=== PATIENT | female | born 1955 ===

== ENCOUNTER 2017-03-26 11:22 | Inpatient (IN) | payer OTHER ==
[~2017-03-26] VITALS: Ht 160 cm; Wt 75.7 kg
[2017-04-29] MEDS ORDERED: ASA81 MG PO (15:11)
[2017-04-29] MEDS ORDERED: LIPITOR20 MG PO (15:11)
[2017-04-29] MEDS ORDERED: LOSARTAN POTAS100 MG PO (15:11)
[2017-04-29] MEDS ORDERED: MOBIC15 MG PO (15:12)
[2017-04-29] MEDS ORDERED: RESTORIL30 M1 PO (15:12)
[2017-04-29] MEDS ORDERED: XANAX1 MG PO (15:12)
[2017-04-29] MEDS ORDERED: BACLOFEN10 MG PO (15:13)
[2017-04-29] MEDS ORDERED: PRILOSEC OTC20 MG PO (15:13)
[2017-04-29] MEDS ORDERED: ATENOLOL25 MG PO (15:13)
== END 2017-05-09 09:55 | disposition home or self-care (01) | DRG 331 ==
LOC: SURH 05-06 06:50 → O/R 05-06 06:50 → SURG 05-06 07:00 → SURH 05-06 15:05
PROVIDERS: Surgery
PROC: 0DTF4ZZ Resection of Right Large Intestine, Percutaneous Endoscopic Approach (ICD-10-PCS; principal; 2017-05-06 07:00)
DX: D37.4 Neoplasm of uncertain behavior of colon (principal); I11.9 Hypertensive heart disease without heart failure; E78.00 Pure hypercholesterolemia, unspecified; E66.8 Other obesity; R73.01 Impaired fasting glucose

== ENCOUNTER → 2017-05-16 | Emergency (ER) | payer OTHER ==
[~2017-05-16] VITALS: Ht 160 cm; Wt 75.3 kg
[~2017-05-16] MED LIST: ASA81 MG PO; ATENOLOL25 MG PO; BACLOFEN10 MG PO; LIPITOR20 MG PO; LOSARTAN POTAS100 MG PO; MOBIC15 MG PO; PRILOSEC OTC20 MG PO; RESTORIL30 M1 PO; XANAX1 MG PO
== END | disposition home or self-care (01) ==
LOC: ER 09:15
DX: G89.18 Other acute postprocedural pain (principal); R10.13 Epigastric pain; K29.70 Gastritis, unspecified, without bleeding